=== PATIENT | male | born 1935 | race Caucasian/White ===

== ENCOUNTER → 2016-07-29 | Outpatient (CLI) | payer OTHER | LOC: LAB 14:32 | PROVIDERS: ATTEND Urology | DX: Z12.5 Encounter for screening for malignant neoplasm of prostate (principal) | CPT/HCPCS: 36415; G0103; 84153 ==

== ENCOUNTER → 2016-08-03 | Outpatient (CLI) | payer OTHER | LOC: LAB 13:27 | DX: J06.9 Acute upper respiratory infection, unspecified (principal); J40 Bronchitis, not specified as acute or chronic | CPT/HCPCS: 87880; 99213; G0463 ==

== ENCOUNTER → 2016-08-14 | Outpatient (CLI) | payer OTHER | LOC: MMPC 09:00 | PROVIDERS: ATTEND Physician Assistant Medical | DX: R05 Cough (principal); R09.89 Other specified symptoms and signs involving the circulatory and respiratory systems; J30.1 Allergic rhinitis due to pollen | CPT/HCPCS: 99213; G0463 ==

== ENCOUNTER → 2016-09-23 | Outpatient (CLI) | payer OTHER | LOC: MOB LAB 12:16 | PROVIDERS: ATTEND Family Medicine | DX: R35.0 Frequency of micturition (principal); R33.9 Retention of urine, unspecified; R41.0 Disorientation, unspecified | CPT/HCPCS: 87088 ==

== ENCOUNTER → 2016-09-23 | Outpatient (CLI) | payer OTHER ==
[2016-09-23 17:02] LABS: BASOPHILS # (AUTO) 0.09 10*3/UL; BASOPHILS % (AUTO) 1.8 % (0-1); EOSINOPHILS # (AUTO) 0.14 10*3/UL; EOSINOPHILS % (AUTO) 2.8 % (0-8); HEMATOCRIT 47.7 % (42.0-52.0); LYMPHOCYTES # (AUTO) 1.47 10*3/uL; MEAN CORPUSCULAR HEMOGLOBIN 31.3 PG (27-31); MEAN CORPUSCULAR HGB CONC 33.5 g/dL (33-37); MEAN CORPUSCULAR VOLUME 93.2 FL (80-90); MEAN PLATELET VOLUME 11.6 FL (7.4-12.2); MONOCYTES # (AUTO) 0.42 10*3/UL (0.3-0.8); MONOCYTES % (AUTO) 8.3 % (5-15); NEUTROPHILS # (AUTO) 2.93 10*3/UL; NEUTROPHILS % (AUTO) 57.6 % (50-80); RED BLOOD COUNT 5.12 10^6/uL (4.70-6.10)
[2016-09-23 17:03] LABS: PLATELET MORPHOLOGY COMMENT NORMAL MORPHOLOGY (NORM); RBC MORPHOLOGY COMMENT NORMAL MORPHOLOGY (NORM); WBC MORPHOLOGY COMMENT NORMAL MORPHOLOGY (NORM)
[2016-09-23 17:24] LABS: BUN/CREATININE RATIO 13.33 (6-20); CALCIUM 8.8 mg/dL (8.7-10.7); CHOL/HDL RATIO 2.76 RATIO (0-4.0); HEMOGLOBIN A1C 6.18 % (4.2-6.0); LDL CHOLESTEROL,CALCULATED 54.6 mg/dL; MAGNESIUM 2.2 mg/dL (1.6-2.4); SERUM ALBUMIN 3.8 g/dL (3.5-4.8)
[2016-09-23 17:30] LABS: VITAMIN D 25-HYDROXY 26.2 NG/ML (30-100)
== END ==
LOC: LAB 16:09
PROVIDERS: ATTEND Family Medicine
DX: I10 Essential (primary) hypertension (principal); G47.30 Sleep apnea, unspecified; R41.0 Disorientation, unspecified; R06.2 Wheezing; R60.0 Localized edema; K90.0 Celiac disease; N40.1 Benign prostatic hyperplasia with lower urinary tract symptoms; R33.9 Retention of urine, unspecified; R73.01 Impaired fasting glucose; Z12.5 Encounter for screening for malignant neoplasm of prostate
CPT/HCPCS: 36415; 80053; 80061; 82306; 82607; 83036; 83735; 83880; 84443; 85025; G0103

== ENCOUNTER → 2016-09-27 | Outpatient (CLI) | payer OTHER ==
--- NOTE | 2016-09-27 09:00 | DI ---
History: Confusion Comparison: None Findings: Midline structures are normal. Ventricles and sulci are prominent, consistent with age related atrophic changes. There are moderate small vessel ischemic changes. There are no space occupying lesions and there is no edema or midline shift. There is no acute CVA. There is no hemorrhage. Mastoid cells are well aerated. Impression: Atrophic and small vessel ischemic changes, unremarkable for the patient's age.
== END ==
LOC: MRI 08:14
PROVIDERS: ATTEND Family Medicine
DX: R41.0 Disorientation, unspecified (principal)
CPT/HCPCS: 70551

== ENCOUNTER 2017-11-02 22:10 | Inpatient (IN) ==
[2017-11-02] MEDS ORDERED: Sodium Chloride 0.9% 1,000 ML PRIMARY IV ONE (22:32)
--- NOTE | 2017-11-02 22:37 | PDOC ---
Altered Mental Status HPI - General Chief Complaint: Altered Mental Status Stated Complaint: CHANGED MEDS, NOW HAVING CONFUSION Date Seen by Provider: 11/02/17 Time Seen by Provider: 22:15 Source: POSITIVE: Patient, Spouse, Other (Sons) Exam Limitations: POSITIVE: Clinical condition Nurse's Notes Reviewed & Considered: Yes - History of Present Illness Initial Comments: This is a well-developed, well-nourished, 82-year-old male, with confusion. Over the last 2 weeks patient has had some mild confusion that became significantly worse 2 days ago. His family reports that he no longer recognizes the home he is lived in for 50 years, has attempted to drive an hour later a hotel for unknown reasons and he has not been driving for over 2 years now. His states that he has had no fever chills or sweats, no complaints of headache, no complaints of shortness of breath, chest pain, but has had some shortness of breath for which she has taken albuterol. He is complaining of some mild nausea but no vomiting, no diarrhea. He's had increased frequency of urination but no dysuria. Further review of systems is unavailable because the patient's confusion. Patient states that he is 32 years old and does not remember today's date. Body Location Affected: REPORTS: Head Timing: REPORTS: Gradual Duration: >1 week Severity: Severe Quality: DENIES: Aching, Burning, Cramping, Dullness, Fullness, "Pain", Sharpness, Stabbing, Throbbing, Tenderness, Itching, Pressure, Other Character of AMS: REPORTS: Disoriented, Confused FSBS BILL SORTER (Result in comment): No Patient Normals: REPORTS: Alert, Oriented x3 Associated Symptoms: REPORTS: Difficulty Breathing, Nausea Similar Symptoms Previously: No Recent Care Received: REPORTS: Denies Any Prior Injuries Related to Current Complaint?: No - Patient Home Medications Home Medications: Home Medications Polyethylene Glycol 3350 [Miralax] 17 gm PO DAILY 09/23/16 lisinopril 40 mg tablet 40 mg PO QD #90 tab 10/24/16 apixaban 2.5 mg tablet 2.5 mg PO BID #60 tab 09/23/17 metoprolol succinate ER 25 mg tablet,extended release 24 hr 25 mg PO QDAY #30 tab 09/23/17 furosemide 40 mg tablet 80 mg PO QAM #180 tab 09/26/17 spironolactone 25 mg tablet 25 mg PO QAM #30 tab 10/14/17 tamsulosin 0.4 mg capsule 0.8 mg PO QDAY cap 10/14/17 albuterol sulfate HFA 90 mcg/actuation aerosol inhaler 2 puff INH Q4H PRN #8 g 10/22/17 - Patient Allergies Allergies/Adverse Reactions: Allergies 3 Allergy/AdvReac Type Severity Reaction Status Date / Time cephalexin Allergy facial Verified 09/26/17 10:52 swelling Penicillins Allergy swelling Verified 09/26/17 10:52 Sulfa (Sulfonamide Allergy rash Verified 09/26/17 10:52 Antibiotics) trimethoprim Allergy rash Verified 09/26/17 10:52 Past Medical History - heen HEENT History: Denies History Cardiovascular History: Hypertension Respiratory History: Denies History Gastrointestinal History: Other (please comment) (INTERMITTENT ABDOMINAL PAIN FOR TWO WEEKS) Additional Gastrointestinal History: Hx of appendectomy Genitourinary History: Denies History Additional Genitourinary History: hx of stress urinary incontinence Endocrine History: Denies History Musculoskeletal History: Denies History Prosthesis or Implant: No Neurological History: Denies History Additional Neurological History: spouse states occasional memory loss--short term memory. Blood Disorders: Denies History Psychiatric History: Denies History History of Sexually Transmitted Diseases: No Cancer History: Denies History History of MDRO: No History of Other Communicable Diseases: No History of Exposure to Communicable Disease: No Alcohol Use: None In the Past 12 Months, Have Used or Abuse Any Substance: None Previous Surgical History: Yes (APPENDECTOMY) Anesthesia Reactions: No ROS - Limitations ROS Limitations: Clinical Condition (Patient is confused and further review of systems is unavailable.) Altered Mental Physical Exam - General Appearance General Appearance: POSITIVE: Cooperative, No Acute Distress, No Evidence of Trauma - HEENT HEENT: POSITIVE: Head Inspection Nml, Eyes Inspection Nml, Ears Inspection Nml, Nose Inspection Nml, Oral/Dental Inspect. Nml, Pharynx Inspect. Nml, PERRL, EOMI - Pupil Size Pupil Size: 5 mm: Bilateral - Neuro/Psych Neurological: POSITIVE: Confusion Cranial Nerves: POSITIVE: Normal As Tested, No Evidence of Acute CVA Cerebellar: POSITIVE: Normal As Tested Peripheral Exam: POSITIVE: No Motor Deficits, No Sensory Deficits, Reflexes Normal Reflexes: Patellar (R): 3+, Patellar (L): 3+, Radial (R): 4+, Radial (L): 4+ - Neck Neck: POSITIVE: Supple, Non Tender - Respiratory Respiratory: POSITIVE: No Respiratory Distress, Breath Sounds Normal - Cardiovascular CVS: POSITIVE: Regular Rate and Rhythm, Heart Sounds Normal Peripheral Pulses: Radial (R): 4+ - Abdomen Abdomen: Soft: (All Quadrants), Normal Bowel Sounds: (All Quadrants), Denies Tenderness: (All Quadrants), No Splenomegaly: (All Quadrants), No Hepatomegaly: (All Quadrants), No Guarding: (All Quadrants), No Rebound: (All Quadrants), No Palpable Pulse: (All Quadrants), No Palpabale Mass: (All Quadrants), No Distention: (All Quadrants), No Rigidity: (All Quadrants) - Skin Skin: POSITIVE: Normal for Race, No Rash, Warm, Dry - Extremities Extremity: Non-Tender: (All Extremities), Normal ROM: (All Extremities), Normal Inspection: (LUE), (RUE), Pelvis Stable: (All Extremities), Edema / Swelling: ( RLE), (LLE) Altered Mental Status - Results Reviewed By Me Xrays/CTs/US Reviewed: Yes Discussed with Radiologist: Yes Lab Results Reviewed by Me: Yes CBC and BMP: 11/02/17 22:48 11/02/17 22:48 Lab Results:: Laboratory Results 3 11/02/17 11/02/17 11/02/17 22:42 22:48 22:48 WBC 5.02 RBC 4.89 Hgb 15.7 Hct 46.5 MCV 95.1 H MCH 32.1 H MCHC 33.8 RDW Std Deviation 47.3 RDW Coeff of [place] 14.0 Plt Count 171 MPV 11.5 Immature Gran % (Auto) 0.6 Neut % (Auto) 59.5 Lymph % (Auto) 31.5 [place] % (Auto) 6.0 Eos % (Auto) 2.2 Baso % (Auto) 0.2 Immature Gran # (Auto) 0.03 Neut # (Auto) 2.99 Lymph # (Auto) 1.58 [place] # (Auto) 0.30 Eos # (Auto) 0.11 Baso # (Auto) 0.01 WBC Morphology Comment Normal morphology Plt Morphology Comment Normal morphology RBC Morph Comment Normal morphology PT 11.7 H INR 1.13 D-Dimer 0.22 VBG pH 7.44 H VBG pCO2 45 VBG HCO3 31 H VBG Base Excess 6 H Sodium Potassium Chloride Carbon Dioxide Anion Gap BUN Creatinine BUN/Creatinine Ratio Glucose Calculated Osmolality Calcium Magnesium Total Bilirubin AST ALT Alkaline Phosphatase Ammonia CK-MB (CK-2) Troponin I Handheld C-Reactive Protein NT-Pro-B Natriuret Pep Total Protein Albumin Globulin Albumin/Globulin Ratio TSH Free T4 Ur Collection Type Urine Color Urine Clarity Urine pH Ur Specific [place] U Specif Grav (Refrac) Urine Protein Urine Glucose (UA) Urine Ketones Urine Occult Blood Urine Nitrate Urine Bilirubin Urine Urobilinogen Ur Leukocyte Esterase Ur Culture Indicated? Urine Opiates Screen Ur Buprenorphine Ur Oxycodone Screen Urine Methadone Screen Ur Propoxyphene Screen Barbiturate Screen U Tricyclic Antidepress Phencyclidine Screen Amphetamines Screen U Methamphetamines Scrn Benzodiazepines Screen Cocaine Screen U Marijuana (THC) Screen Serum Alcohol 3 11/02/17 11/02/17 11/02/17 22:48 22:48 22:48 WBC RBC Hgb Hct MCV MCH MCHC RDW Std Deviation RDW Coeff of [place] Plt Count MPV Immature Gran % (Auto) Neut % (Auto) Lymph % (Auto) [place] % (Auto) Eos % (Auto) Baso % (Auto) Immature Gran # (Auto) Neut # (Auto) Lymph # (Auto) [place] # (Auto) Eos # (Auto) Baso # (Auto) WBC Morphology Comment Plt Morphology Comment RBC Morph Comment PT INR D-Dimer VBG pH VBG pCO2 VBG HCO3 VBG Base Excess Sodium 136 Potassium 4.2 Chloride 105 Carbon Dioxide 29 Anion Gap 2 L BUN 17 Creatinine 1.0 BUN/Creatinine Ratio 17.00 Glucose 129 H Calculated Osmolality 285.0 Calcium 8.9 Magnesium 2.0 Total Bilirubin 0.6 AST 37 ALT 48 Alkaline Phosphatase 48 Ammonia < 9 L CK-MB (CK-2) 1.86 Troponin I Handheld C-Reactive Protein < 0.5 NT-Pro-B Natriuret Pep 1480 H Total Protein 6.4 Albumin 3.7 Globulin 2.7 Albumin/Globulin Ratio 1.30 TSH 4.05 Free T4 1.17 Ur Collection Type Urine Color Urine Clarity Urine pH Ur Specific [place] U Specif Grav (Refrac) Urine Protein Urine Glucose (UA) Urine Ketones Urine Occult Blood Urine Nitrate Urine Bilirubin Urine Urobilinogen Ur Leukocyte Esterase Ur Culture Indicated? Urine Opiates Screen Ur Buprenorphine Ur Oxycodone Screen Urine Methadone Screen Ur Propoxyphene Screen Barbiturate Screen U Tricyclic Antidepress Phencyclidine Screen Amphetamines Screen U Methamphetamines Scrn Benzodiazepines Screen Cocaine Screen U Marijuana (THC) Screen Serum Alcohol < 10 3 11/02/17 11/03/17 22:48 01:10 WBC RBC Hgb Hct MCV MCH MCHC RDW Std Deviation RDW Coeff of [place] Plt Count MPV Immature Gran % (Auto) Neut % (Auto) Lymph % (Auto) [place] % (Auto) Eos % (Auto) Baso % (Auto) Immature Gran # (Auto) Neut # (Auto) Lymph # (Auto) [place] # (Auto) Eos # (Auto) Baso # (Auto) WBC Morphology Comment Plt Morphology Comment RBC Morph Comment PT INR D-Dimer VBG pH VBG pCO2 VBG HCO3 VBG Base Excess Sodium Potassium Chloride Carbon Dioxide Anion Gap BUN Creatinine BUN/Creatinine Ratio Glucose Calculated Osmolality Calcium Magnesium Total Bilirubin AST ALT Alkaline Phosphatase Ammonia CK-MB (CK-2) Troponin I Handheld 0.000 C-Reactive Protein NT-Pro-B Natriuret Pep Total Protein Albumin Globulin Albumin/Globulin Ratio TSH Free T4 Ur Collection Type Clean catch urine Urine Color Yellow Urine Clarity Clear Urine pH 5.5 Ur Specific [place] 1.010 U Specif Grav (Refrac) 1.010 Urine Protein Negative Urine Glucose (UA) Negative Urine Ketones Negative Urine Occult Blood Negative Urine Nitrate Negative Urine Bilirubin Negative Urine Urobilinogen 0.2 Ur Leukocyte Esterase Negative Ur Culture Indicated? Culture not set Urine Opiates Screen Negative Ur Buprenorphine Negative Ur Oxycodone Screen Negative Urine Methadone Screen Negative Ur Propoxyphene Screen Negative Barbiturate Screen Negative U Tricyclic Antidepress Negative Phencyclidine Screen Negative Amphetamines Screen Negative U Methamphetamines Scrn Negative Benzodiazepines Screen Negative Cocaine Screen Negative U Marijuana (THC) Screen Negative Serum Alcohol EKG Interpreted/Reviewed By Me:: Yes (atrial fibrillation with a rate of 83 beats a minute) EKG Interpretation:: POSITIVE: Abnormal EKG - Patient's Progress Pain Medication Addressed: POSITIVE: Not Applicable Status: POSITIVE: Improved MDM / ED Course: Patient was evaluated, an IV started, blood drawn and sent to the lab for studies, CT and ultrasound was obtained as well as EKG. Findings: EKG, as interpreted by me, shows an atrial fibrillation with rate of 83 beats a minute. CBC is within normal limits. CMP shows a glucose of 129 anion gap of 2. Troponin is 0.000. BNP is elevated 1480. Blood gases show a pH of 7.44 with CO2 of 45 and a bicarbonate of 31, base excess is 6. TSH and free T4 normal. Urinalysis is negative. PT/INR is normal. D-dimer is normal at 0.22. Ammonia is less than 9. CRP is less than 0.5. Urine drug screen is negative for all substances tested. Ultrasound shows no DVT present in the right lower extremity. CT scan of his head shows no acute intracranial abnormalities. Assessment: Confusion, altered mental status. Plan: Patient is being admitted by the hospitalist for further evaluation. Antibiotics Given: No - Consult Consult (If Yes, Name of Consulting MD & Time Called): Yes (Dr. Lamas) Consulting MD will see pt:: POSITIVE: [facility] [place] Admit Counseled: POSITIVE: Patient, Family, RE: Lab Results, RE: Radiology Results, RE : DX, RE: Need for F/U - CAP/CVA/Syncope CVA/Syncope: POSITIVE: EKG Patient Care Time - Estimated PCT Patient Care Time (In Minutes): 45 Vital Signs - Recent Vital Signs Vital Signs: Vital Signs (Last 8 hours) Temp Pulse Pulse Resp BP Pulse Ox 11/03/17 02:38 161/122 11/03/17 02:37 96.9 F 91 24 170/133 97 11/03/17 01:50 50 L - VS Reviewed Vital Signs Reviewed: Yes Discharge Clinical Impression: Altered mental status Qualifiers: Altered mental status type: disorientation Qualified Code(s): R41.0 - Disorientation, unspecified Discharge Disposition: Admit to Observation Condition: Stable
--- NOTE | 2017-11-02 22:43 | EKG ---
[address] [address] Measurements Intervals [place] Rate: 83 P: NM: 0 QRS: -81 QRSD: 153 T: 21 QT: 402 QTc: 442 Interpretive Statements ATRIAL FIBRILLATION RIGHT BUNDLE BRANCH BLOCK [120+ ms QRS DURATION, UPRIGHT V1, 40+ ms S IN I/aVL/V4/V5/V6] LEFT ANTERIOR FASCICULAR BLOCK [QRS AXIS <= -45, QR IN I, RS IN II] INTERPRETATION BASED ON A DEFAULT AGE OF 40 YEARS Compared to ECG 09/23/2017 14:16:50 Left anterior fascicular block now present Left-axis deviation no longer present Electronically Signed On 11-03-17 08:10:24 MDT by Kumar Cortés MD [email or web address]
[2017-11-02 22:52] LABS: VENOUS PH 7.44 (7.32-7.42)
[2017-11-02 23:01] LABS: BASOPHILS # (AUTO) 0.01 10*3/UL; BASOPHILS % (AUTO) 0.2 % (0-1); EOSINOPHILS # (AUTO) 0.11 10*3/UL; EOSINOPHILS % (AUTO) 2.2 % (0-8); Hematocrit [HCT] 46.5 % (42.0-52.0); Hemoglobin [HGB] 15.7 g/dL (14.0-18.0); LYMPHOCYTES # (AUTO) 1.58 10*3/uL; MEAN CORPUSCULAR HEMOGLOBIN 32.1 PG (27-31); MEAN CORPUSCULAR HGB CONC 33.8 g/dL (33-37); MEAN CORPUSCULAR VOLUME 95.1 FL (80-90); MEAN PLATELET VOLUME 11.5 FL (7.4-12.2); NEUTROPHILS # (AUTO) 2.99 10*3/UL; NEUTROPHILS % (AUTO) 59.5 % (50-80); PLATELET MORPHOLOGY COMMENT NORMAL MORPHOLOGY (NORM); RBC MORPHOLOGY COMMENT NORMAL MORPHOLOGY (NORM); RED BLOOD COUNT 4.89 10^6/uL (4.70-6.10); WBC MORPHOLOGY COMMENT NORMAL MORPHOLOGY (NORM)
[2017-11-02 23:10] LABS: BLOOD UREA NITROGEN 17 mg/dL (7-22); SERUM ALBUMIN 3.7 g/dL (3.5-4.8)
--- NOTE | 2017-11-02 23:41 | DI ---
EXAM: CT Head Without Intravenous Contrast CLINICAL HISTORY: Confusion TECHNIQUE: Axial computed tomography images of the head/brain without intravenous contrast. COMPARISON: MRI 2016 FINDINGS: Brain: Underlying cerebral atrophy is similar to previous exam. Periventricular and subcortical deep white matter hypodense changes are similar. No hemorrhage. Ventricles: Unremarkable. No ventriculomegaly. Bones/joints: Unremarkable. No acute fracture. Soft tissues: Unremarkable. Sinuses: Unremarkable as visualized. No acute sinusitis. Mastoid air cells: Unremarkable as visualized. No mastoid effusion. IMPRESSION: No acute intracranial process with underlying cerebral atrophy and deep white matter presumed microvascular changes, similar to previous MRI examination.
--- NOTE | 2017-11-03 00:05 | DI ---
EXAM: XR Chest, 2 Views CLINICAL HISTORY: SOB TECHNIQUE: Frontal and lateral views of the chest. COMPARISON: 09/03/2017 FINDINGS: Lungs: Perihilar and bibasilar subsegmental linear and streaky opacities. Pleural space: Unremarkable. No pneumothorax. Heart: The cardiac silhouette is within normal limits. Mediastinum: Unremarkable. Bones/joints: Stable degenerative changes of the thoracic spine. Upper abdomen: Stable flattening of the hemidiaphragms. IMPRESSION: Perihilar and bibasilar subsegmental linear and streaky opacities. Primary consideration is subsegmental atelectasis with diminished lung volumes. Atypical infectious process is also a consideration.
--- NOTE | 2017-11-03 01:10 | DI ---
EXAM: US Duplex Right Lower Extremity Veins CLINICAL HISTORY: sob/ LLE swelling TECHNIQUE: Real-time duplex ultrasound scan of the right lower extremity veins integrating B-mode two-dimensional vascular structure, Doppler spectral analysis, color flow Doppler imaging and compression. COMPARISON: No relevant prior studies available. FINDINGS: Deep veins: Unremarkable. No DVT in the visualized common femoral, femoral, proximal deep femoral or popliteal veins. The veins demonstrate normal color flow, are normally compressible, with normal phasic flow and/or augmentation response. Posterior tibial and anterior tibial veins appear to be patent. Superficial veins: Unremarkable. No thrombus in the visualized great saphenous vein. Soft tissues: Subcutaneous edema noted diffusely. No popliteal cyst. IMPRESSION: No evidence for deep venous thrombosis involving the right lower extremity. Incidental subcutaneous edema noted. No loculated fluid collection or other process identified.
[2017-11-03 01:13] LABS: BILIRUBIN,URINE NEGATIVE (NEG); CLARITY,URINE CLEAR (CLEAR); COLOR,URINE YELLOW (Y); GLUCOSE, URINE (UA) NEGATIVE (NEG); OCCULT BLOOD,URINE NEGATIVE (NEG); PH,URINE 5.5 (5.0-8.5); PROTEIN,URINE NEGATIVE (NEG); UROBILINOGEN,URINE 0.2 EU/dL (0.2)
[2017-11-03 01:17] LABS: URINE SAMPLE TYPE CLEAN CATCH URINE
[2017-11-03 01:24] LABS: AMPHETAMINE SCREEN NEGATIVE (NEG); CANNABINOID SCREEN,URINE NEGATIVE (NEG); COCAINE SCREEN NEGATIVE (NEG); METHADONE URINE SCREEN NEGATIVE (NEG); METHAMPHETAMINES SCREEN,URINE NEGATIVE (NEG); OPIATE SCREEN,URINE NEGATIVE (NEG)
[2017-11-03] MEDS ORDERED: HALOPERIDOL LACTATE 5 MG/1 ML AMPULE IVP ONE (01:26)
[2017-11-03] MEDS ORDERED: DOCUSATE 100 MG CAPSULE PO PRN (01:50)
[2017-11-03] MEDS ORDERED: Sodium Chloride 0.9% 1,000 ML PRIMARY IV SCH (01:50)
[2017-11-03] MEDS ORDERED: ONDANSETRON 4 MG/2 ML VIAL IVP PRN (01:50)
[2017-11-03] MEDS ORDERED: CALCIUM CARBONATE 500 MG (TUMS) CHEWABLE TABLET PO PRN (01:50)
[2017-11-03] MEDS ORDERED: ACETAMINOPHEN 325 MG TABLET PO PRN (01:50)
[2017-11-03] MEDS ORDERED: LIDOCAINE W/ SODIUM BICARB 0.5 ML SYR SUBD PRN (01:50)
--- NOTE | 2017-11-03 03:05 | PDOC ---
HPI - History of Present Illness Date of Service: 11/03/17 Time of Service: 02:59 Chief Complaint: Confusion History of Present Illness: This is a very pleasant 82-year-old male who has underlying dementia, recent onset of worsening edema thought to be pulmonary hypertension versus congestive heart failure, sleep apnea, BPH, hypertension, and asthma, amongst other problems, who has had 2 days of significantly worsening confusion with hallucinations. He's companied by his and his 2 sons here tonight. The patient has not had any fevers or chills, no cough reported. No complaints of chest pain or shortness of breath. In terms of his dementia, it's described as intermittent confusion about dates, but never about location. However over the last 2 days the patient does not know where he is living. [place] but cannot recognize it. He has had hallucinations and is been seeing people shotguns and knives trying to shoot or stab him. He's never had hallucinations like this before. About a year ago, the patient had workup for possible normal pressure hydrocephalus, but refused lumbar Procedures for high-volume LP to see if he would benefit from that. He does have a reported shuffling gait. His describes a tremor although I did not notice one during the examination. She thought it could be a urine infection as patient seemed to have worsening confusion 2 months ago with a urinary tract infection, but we were able to get a urinalysis early this a.m. and it appears negative for urinary tract infection. He is complaining of some increased swelling in his right lower extremity and wrist recently started on spironolactone although no echocardiogram has been done recently. Exacerbating factors are very difficult to obtain and the patient could not really provide much of a history. He was very confused about his whereabouts, he had no idea about the situation, and was really trying to concentrate on leaving the hospital in going home. He could not tell me where he lived, or that he lived within 90 miles of the hospital. He thought he was 200 miles away. Past Medical History Medical History: 1. Obesity. 2. GERD. 3. Hypertension. 4. Asthma. 5. Dementia without behavioral disturbances. 6. BPH. 7. Lower extremity edema. 8. Obstructive sleep apnea. 9. Atrial fibrillation, on Eliquis for stroke prevention Surgical History: 1. ORIF knee, right side. The patient had some sort of accident in the past and extensive surgery on the right lower extremity in the knee. 2. Status post appendectomy. 3.pelvis fracture. 4. wrist fracture Pertinent Family History: No history of Parkinson's disease in the family. Past Social History: Reportedly a history of smoking, but does not currently drink or smoke. Been for over the years. [place], [place]. Has 2 sons present here in the emergency room tonight. Tobacco Use: Former Smoker In the Past 12 Months, Have Used or Abuse Any of the Following Substance: None Alcohol Use: None Medication / Allergies Home Medications: Home Medications 3 Medication Instructions Recorded Confirmed Type Polyethylene Glycol 3350 [Miralax] 17 gm PO DAILY 09/23/16 10/14/17 History lisinopril 40 mg tablet 40 mg PO QD #90 tab 10/24/16 10/14/17 Rx apixaban 2.5 mg tablet 2.5 mg PO BID #60 tab 09/23/17 10/14/17 Rx metoprolol succinate ER 25 mg 25 mg PO QDAY #30 tab 09/23/17 10/14/17 Rx tablet,extended release 24 hr furosemide 40 mg tablet 80 mg PO QAM #180 tab 09/26/17 10/14/17 Rx spironolactone 25 mg tablet 25 mg PO QAM #30 tab 10/14/17 10/14/17 Rx tamsulosin 0.4 mg capsule 0.8 mg PO QDAY cap 10/14/17 10/14/17 History albuterol sulfate HFA 90 2 puff INH Q4H PRN #8 g 10/22/17 Rx mcg/actuation aerosol inhaler Allergies/Adverse Reactions: Allergies 3 Allergy/AdvReac Type Severity Reaction Status Date / Time cephalexin Allergy facial Verified 09/26/17 10:52 swelling Penicillins Allergy swelling Verified 09/26/17 10:52 Sulfa (Sulfonamide Allergy rash Verified 09/26/17 10:52 Antibiotics) trimethoprim Allergy rash Verified 09/26/17 10:52 Review of Systems - Review of Systems ROS Unobtainable: Due to Mental Status (Review systems was extremely difficult to obtain due to the patient's dementia. He is an extremely poor historian. He did deny any chest pain, shortness breath, nausea or vomiting. Family describes possible shuffling gait.) Exam - Vitals Vital Signs: Vital Signs Temperature 96.9 F Temperature Source Temporal Artery Scan Pulse Rate [Pulse Oximeter] 91 Pulse Rate [Apical] 50 Respiratory Rate 24 Blood Pressure [Right Arm] 161/122 Pulse Ox 97 Oxygen Flow Rate 2 Oxygen Delivery Method Nasal Cannula Height 5 ft 8 in Weight 255 lb 11.2 oz - General General Appearance: No Acute Distress, Cooperative - Head Head Exam: Normal Inspection, Normocephalic, Atraumatic - Eye Eye Exam: POSITIVE: No Scleral Icterus - ENT ENT Exam: POSITIVE: Mucous Membranes Moist - Neck Neck Exam: Normal Inspection, No Tenderness, No Lymphadenopathy, No Thyromegaly , JVP is not Raised - Respiratory Respiratory Exam: POSITIVE: Clear to Auscultation - Bilaterally, Breathing Non Labored, Normal to Percussion and Palpation - Cardiovascular Cardiovascular Exam: POSITIVE: RRR, No Murmur, No Clicks, No Gallops, No Rubs, No JVD - GI/Abdominal GI/Abdominal Exam: POSITIVE: Normal Bowel Sounds, Non Tender, Non Distended, Soft - Rectal Rectal Exam: POSITIVE: Deferred - External Exam: POSITIVE: Deferred Exam: POSITIVE: Deferred - Extremities Extremities Exam: POSITIVE: No Clubbing Present, No Cyanosis Present, +2 Edema Additional Extremities Exam Details: There is no erythema and the lower extremities to suggest cellulitis. - Back Back Exam: POSITIVE: No CVA Tenderness - Neurological Neurological Exam: POSITIVE: Alert, No Facial Droop, Speech Intact / Clear, Moves All Extremities Equally, Altered (Oriented to person, but not to place, time, or situation.) - Psychiatric Psychiatric Exam: POSITIVE: Anxious, Agitated - Integumentary Integumentary Exam: POSITIVE: Warm, Dry, Intact Results - Labs CBC and BMP: 11/02/17 22:48 11/02/17 22:48 Additional Lab Results: Laboratory Results 11/02/17 11/02/17 11/02/17 Range/Units 22:42 22:48 22:48 WBC 5.02 (4.8-10.8) 10^3/uL RBC 4.89 (4.70-6.10) 10^6/uL Hgb 15.7 (14.0-18.0) g/dL Hct 46.5 (42.0-52.0) % MCV 95.1 H (80-90) FL MCH 32.1 H (27-31) PG MCHC 33.8 (33-37) g/dL RDW Std Deviation 47.3 (39-50) fL RDW Coeff of Codi 14.0 (11.5-14.5) % Plt Count 171 (140-350) 10*3/uL MPV 11.5 (7.4-12.2) FL Immature Gran % (Auto) 0.6 (0-5) % Neut % (Auto) 59.5 (50-80) % Lymph % (Auto) 31.5 (10-50) % [facility] % (Auto) 6.0 (5-15) % Eos % (Auto) 2.2 (0-8) % Baso % (Auto) 0.2 (0-1) % Immature Gran # (Auto) 0.03 10*3/UL Neut # (Auto) 2.99 10*3/UL Lymph # (Auto) 1.58 10*3/uL [facility] # (Auto) 0.30 (0.3-0.8) 10*3/UL Eos # (Auto) 0.11 10*3/UL Baso # (Auto) 0.01 10*3/UL WBC Morphology Comment Normal morphology (NORM) Plt Morphology Comment Normal morphology (NORM) RBC Morph Comment Normal morphology (NORM) PT 11.7 H (9.7-11.4) secs INR 1.13 (0.00-5.90) N/A D-Dimer 0.22 (0.00-0.59) mg/L VBG pH 7.44 H (7.32-7.42) VBG pCO2 45 (45-55) mmHg VBG HCO3 31 H (22-26) mmol/L VBG Base Excess 6 H (-2-2) MMOL/L Sodium (135-145) meq/L Potassium (3.8-5.2) meq/L Chloride (98-112) meq/L Carbon Dioxide (23-33) meq/L Anion Gap (5-20) BUN (7-22) mg/dL Creatinine (0.70-1.50) mg/dL BUN/Creatinine Ratio (6-20) Glucose (78-110) mg/dL Calculated Osmolality (267-292) mOsm/kg Calcium (8.7-10.7) mg/dL Magnesium (1.6-2.4) mg/dL Total Bilirubin (0.3-1.2) mg/dL AST (21-57) IU/L ALT (21-72) IU/L Alkaline Phosphatase (38-126) IU/L Ammonia (9.0-33.0) UMOL/L CK-MB (CK-2) (0.00-5.00) NG/ML Troponin I Handheld (< 0.040) ng/mL C-Reactive Protein (0.0-0.9) mg/dL NT-Pro-B Natriuret Pep (0-450) PG/ML Total Protein (6.1-8.0) g/dL Albumin (3.5-4.8) g/dL Globulin (2.50-4.10) g/dL Albumin/Globulin Ratio (1.3-2.0) mg/g TSH (0.2700-4.2000) uIU/mL Free T4 (0.93-1.71) ng/dL Ur Collection Type Urine Color (Y) Urine Clarity (CLEAR) Urine pH (5.0-8.5) Ur Specific Hooper (1.005-1.030) U Specif Grav (Refrac) Urine Protein (NEG) mg/dl Urine Glucose (UA) (NEG) mg/dL Urine Ketones (NEG) Urine Occult Blood (NEG) Urine Nitrate (NEG) Urine Bilirubin (NEG) Urine Urobilinogen (0.2) EU/dL Ur Leukocyte Esterase (NEG) Ur Culture Indicated? Urine Opiates Screen (NEG) Ur Buprenorphine (NEG) Ur Oxycodone Screen (NEG) Urine Methadone Screen (NEG) Ur Propoxyphene Screen (NEG) Barbiturate Screen (NEG) U Tricyclic Antidepress (NEG) Phencyclidine Screen (NEG) Amphetamines Screen (NEG) U Methamphetamines Scrn (NEG) Benzodiazepines Screen (NEG) Cocaine Screen (NEG) U Marijuana (THC) Screen (NEG) Serum Alcohol (0-10) mg/dL 11/02/17 11/02/17 11/02/17 Range/Units 22:48 22:48 22:48 WBC (4.8-10.8) 10^3/uL RBC (4.70-6.10) 10^6/uL Hgb (14.0-18.0) g/dL Hct (42.0-52.0) % MCV (80-90) FL MCH (27-31) PG MCHC (33-37) g/dL RDW Std Deviation (39-50) fL RDW Coeff of Codi (11.5-14.5) % Plt Count (140-350) 10*3/uL MPV (7.4-12.2) FL Immature Gran % (Auto) (0-5) % Neut % (Auto) (50-80) % Lymph % (Auto) (10-50) % [facility] % (Auto) (5-15) % Eos % (Auto) (0-8) % Baso % (Auto) (0-1) % Immature Gran # (Auto) 10*3/UL Neut # (Auto) 10*3/UL Lymph # (Auto) 10*3/uL [facility] # (Auto) (0.3-0.8) 10*3/UL Eos # (Auto) 10*3/UL Baso # (Auto) 10*3/UL WBC Morphology Comment (NORM) Plt Morphology Comment (NORM) RBC Morph Comment (NORM) PT (9.7-11.4) secs INR (0.00-5.90) N/A D-Dimer (0.00-0.59) mg/L VBG pH (7.32-7.42) VBG pCO2 (45-55) mmHg VBG HCO3 (22-26) mmol/L VBG Base Excess (-2-2) MMOL/L Sodium 136 (135-145) meq/L Potassium 4.2 (3.8-5.2) meq/L Chloride 105 (98-112) meq/L Carbon Dioxide 29 (23-33) meq/L Anion Gap 2 L (5-20) BUN 17 (7-22) mg/dL Creatinine 1.0 (0.70-1.50) mg/dL BUN/Creatinine Ratio 17.00 (6-20) Glucose 129 H (78-110) mg/dL Calculated Osmolality 285.0 (267-292) mOsm/kg Calcium 8.9 (8.7-10.7) mg/dL Magnesium 2.0 (1.6-2.4) mg/dL Total Bilirubin 0.6 (0.3-1.2) mg/dL AST 37 (21-57) IU/L ALT 48 (21-72) IU/L Alkaline Phosphatase 48 (38-126) IU/L Ammonia < 9 L (9.0-33.0) UMOL/L CK-MB (CK-2) 1.86 (0.00-5.00) NG/ML Troponin I Handheld (< 0.040) ng/mL C-Reactive Protein < 0.5 (0.0-0.9) mg/dL NT-Pro-B Natriuret Pep 1480 H (0-450) PG/ML Total Protein 6.4 (6.1-8.0) g/dL Albumin 3.7 (3.5-4.8) g/dL Globulin 2.7 (2.50-4.10) g/dL Albumin/Globulin Ratio 1.30 (1.3-2.0) mg/g TSH 4.05 (0.2700-4.2000) uIU/mL Free T4 1.17 (0.93-1.71) ng/dL Ur Collection Type Urine Color (Y) Urine Clarity (CLEAR) Urine pH (5.0-8.5) Ur Specific Hooper (1.005-1.030) U Specif Grav (Refrac) Urine Protein (NEG) mg/dl Urine Glucose (UA) (NEG) mg/dL Urine Ketones (NEG) Urine Occult Blood (NEG) Urine Nitrate (NEG) Urine Bilirubin (NEG) Urine Urobilinogen (0.2) EU/dL Ur Leukocyte Esterase (NEG) Ur Culture Indicated? Urine Opiates Screen (NEG) Ur Buprenorphine (NEG) Ur Oxycodone Screen (NEG) Urine Methadone Screen (NEG) Ur Propoxyphene Screen (NEG) Barbiturate Screen (NEG) U Tricyclic Antidepress (NEG) Phencyclidine Screen (NEG) Amphetamines Screen (NEG) U Methamphetamines Scrn (NEG) Benzodiazepines Screen (NEG) Cocaine Screen (NEG) U Marijuana (THC) Screen (NEG) Serum Alcohol < 10 (0-10) mg/dL 11/02/17 11/03/17 Range/Units 22:48 01:10 WBC (4.8-10.8) 10^3/uL RBC (4.70-6.10) 10^6/uL Hgb (14.0-18.0) g/dL Hct (42.0-52.0) % MCV (80-90) FL MCH (27-31) PG MCHC (33-37) g/dL RDW Std Deviation (39-50) fL RDW Coeff of Codi (11.5-14.5) % Plt Count (140-350) 10*3/uL MPV (7.4-12.2) FL Immature Gran % (Auto) (0-5) % Neut % (Auto) (50-80) % Lymph % (Auto) (10-50) % [facility] % (Auto) (5-15) % Eos % (Auto) (0-8) % Baso % (Auto) (0-1) % Immature Gran # (Auto) 10*3/UL Neut # (Auto) 10*3/UL Lymph # (Auto) 10*3/uL [facility] # (Auto) (0.3-0.8) 10*3/UL Eos # (Auto) 10*3/UL Baso # (Auto) 10*3/UL WBC Morphology Comment (NORM) Plt Morphology Comment (NORM) RBC Morph Comment (NORM) PT (9.7-11.4) secs INR (0.00-5.90) N/A D-Dimer (0.00-0.59) mg/L VBG pH (7.32-7.42) VBG pCO2 (45-55) mmHg VBG HCO3 (22-26) mmol/L VBG Base Excess (-2-2) MMOL/L Sodium (135-145) meq/L Potassium (3.8-5.2) meq/L Chloride (98-112) meq/L Carbon Dioxide (23-33) meq/L Anion Gap (5-20) BUN (7-22) mg/dL Creatinine (0.70-1.50) mg/dL BUN/Creatinine Ratio (6-20) Glucose (78-110) mg/dL Calculated Osmolality (267-292) mOsm/kg Calcium (8.7-10.7) mg/dL Magnesium (1.6-2.4) mg/dL Total Bilirubin (0.3-1.2) mg/dL AST (21-57) IU/L ALT (21-72) IU/L Alkaline Phosphatase (38-126) IU/L Ammonia (9.0-33.0) UMOL/L CK-MB (CK-2) (0.00-5.00) NG/ML Troponin I Handheld 0.000 (< 0.040) ng/mL C-Reactive Protein (0.0-0.9) mg/dL NT-Pro-B Natriuret Pep (0-450) PG/ML Total Protein (6.1-8.0) g/dL Albumin (3.5-4.8) g/dL Globulin (2.50-4.10) g/dL Albumin/Globulin Ratio (1.3-2.0) mg/g TSH (0.2700-4.2000) uIU/mL Free T4 (0.93-1.71) ng/dL Ur Collection Type Clean catch urine Urine Color Yellow (Y) Urine Clarity Clear (CLEAR) Urine pH 5.5 (5.0-8.5) Ur Specific Hooper 1.010 (1.005-1.030) U Specif Grav (Refrac) 1.010 Urine Protein Negative (NEG) mg/dl Urine Glucose (UA) Negative (NEG) mg/dL Urine Ketones Negative (NEG) Urine Occult Blood Negative (NEG) Urine Nitrate Negative (NEG) Urine Bilirubin Negative (NEG) Urine Urobilinogen 0.2 (0.2) EU/dL Ur Leukocyte Esterase Negative (NEG) Ur Culture Indicated? Culture not set Urine Opiates Screen Negative (NEG) Ur Buprenorphine Negative (NEG) Ur Oxycodone Screen Negative (NEG) Urine Methadone Screen Negative (NEG) Ur Propoxyphene Screen Negative (NEG) Barbiturate Screen Negative (NEG) U Tricyclic Antidepress Negative (NEG) Phencyclidine Screen Negative (NEG) Amphetamines Screen Negative (NEG) U Methamphetamines Scrn Negative (NEG) Benzodiazepines Screen Negative (NEG) Cocaine Screen Negative (NEG) U Marijuana (THC) Screen Negative (NEG) Serum Alcohol (0-10) mg/dL - EKG Data -: EKG Interpreted by Me Rate: Normal - EKG Data EKG Interpretation: Other (Atrial fibrillation with normal ventricular response was somewhat widened QRS suggestive of possible right bundle branch block.) - Imaging Status: Image Reviewed by Me (Chest x-ray, on my view may have a right-sided pneumonia? CT scan of the head does not show any bleeding in the brain. The ventricles looked normal sized to me.) Assessment and Plan - Patient Problems (1) Altered mental status Current Visit: Yes Status: Acute Code(s): R41.82 - Altered mental status, unspecified Qualifiers: Altered mental status type: disorientation Qualified Code(s): R41.0 - Disorientation, unspecified (2) Hallucinations Current Visit: Yes Status: Acute Code(s): R44.3 - Hallucinations, unspecified (3) Afib Current Visit: Yes Status: Chronic Code(s): I48.91 - Unspecified atrial fibrillation Qualifiers: Atrial fibrillation type: chronic Qualified Code(s): I48.2 - Chronic atrial fibrillation (4) GERD (gastroesophageal reflux disease) Current Visit: Yes Status: Chronic Onset Date: 10/07/11 Code(s): K21.9 - Gastro-esophageal reflux disease without esophagitis Qualifiers: Esophagitis presence: esophagitis presence not specified Qualified Code(s) : K21.9 - Gastro-esophageal reflux disease without esophagitis (5) Dementia, unspecified, with behavioral disturbance Current Visit: Yes Status: Acute Onset Date: 10/04/16 Code(s): F03.91 - Unspecified dementia with behavioral disturbance Qualifiers: Dementia type: Alzheimer's disease Alzheimer's disease onset: late-onset Qualified Code(s): G30.1 - Alzheimer's disease with late onset; F02.81 - Dementia in other diseases classified elsewhere with behavioral disturbance (6) Benign prostatic hyperplasia Current Visit: Yes Status: Chronic Onset Date: 10/07/11 Code(s): N40.0 - Benign prostatic hyperplasia without lower urinary tract symptoms Qualifiers: Lower urinary tract symptom presence: symptoms present Lower urinary tract symptom detail: unspecified Qualified Code(s): N40.1 - Benign prostatic hyperplasia with lower urinary tract symptoms (7) Benign hypertension Current Visit: Yes Status: Acute Onset Date: 10/07/11 Code(s): I10 - Essential (primary) hypertension (8) Asthma Current Visit: Yes Status: Acute Onset Date: 10/07/11 Code(s): J45.909 - Unspecified asthma, uncomplicated Qualifiers: Asthma severity: unspecified severity Asthma complication type: uncomplicated - Assessment / Plan Additional Assessment/Plan Details: It will definitely take more than 2 minutes to work through this altered mental status with hallucinations. I will admit him as an inpatient. We did discuss CODE STATUS, with discussion, the family's decided that they would like the patient to be DO NOT RESUSCITATE. In terms of his workup for confusion, altered mental status, and hallucinations , and like to go ahead and do a CTA to rule out pulmonary emboli and in addition try and determine whether or not there is a pneumonia. Urinalysis is reassuring in that it is looking like it is negative for any urinary tract infection. A brain MRI scan, although one was done in September 2016, may be helpful. Certainly Parkinson's or Parkinsonian-like syndromes might fit the history although I do doubt that there is normal pressure hydrocephalus. The ventricles did look normal sized on head CT scan. Doubt mass effect as there are no focal findings. We'll try to keep the patient on home medications but stop spironolactone and his most recent medication started. Patient may warrant an echocardiogram. I don't know for dealing with pulmonary hypertension or congestive heart failure. Reassuring that the initial troponin is negative. Check labs in a.m. Haldol for hallucinations. It may be that the patient will need an atypical in a psychotic and I did discuss risks and benefits with the family including the risks of early from stroke or heart attack at this age range and the black box label warning from the FDA, but benefits might include prevention of worsening hallucinations. This could all just be worsening dementia as well, but he think that there is a lot in the differential to try and work out to make sure there is no evidence of infection. Complex case. Prognosis is not known.
[2017-11-03] MEDS ORDERED: HALOPERIDOL LACTATE 5 MG/1 ML AMPULE IVP PRN (03:15)
[2017-11-03] MEDS ORDERED: LABETALOL 20 MG/4 ML (5 MG/1 ML) SYRINGE IVP PRN (03:25)
[2017-11-03] MEDS: ALBUTEROL SULFATE 2.5 MG/3 ML NEB PRN ×2 (03:31→06:39)
[2017-11-03 04:13] LABS: CARBON MONOXIDE 4.9 % (0-2)
[2017-11-03] MEDS ORDERED: LIDOCAINE HCL 2 % 10 ML JELLY URO-JECT TOPICAL PRN (04:59)
--- NOTE | 2017-11-03 05:18 | DI ---
EXAM: CT Angiography Chest Without And With Intravenous Contrast CLINICAL HISTORY: altered, hypoxia, elevated D--dimer, question PE TECHNIQUE: Axial computed tomographic angiography images of the chest without and with intravenous contrast using pulmonary embolism protocol. MIP reconstructed images were created and reviewed. COMPARISON: No relevant prior studies available. FINDINGS: Pulmonary arteries: Unremarkable. No pulmonary embolism. Aorta: The ascending aorta measures 4.3 cm. No dissection or significant atherosclerotic disease.. Lungs: There is peribronchial thickening noted, particularly in the dependent lung bases. There is some respiratory artifact at the lung bases are slightly limits detailed evaluation of the distal subsegmental branches. No mass. Pleural space: Unremarkable. No significant effusion. No pneumothorax. Heart: Unremarkable. No cardiomegaly. No significant pericardial effusion. There is some reflux of contrast into the intrahepatic IVC. Mediastinum: There is a soft tissue density structure involving the superior mediastinum adjacent to the right trachea measures 3.7 x 3.2 x 5. 4 cm in length and appears to abut or be contiguous with the inferior margin of the left thyroid gland. Bones/joints: Degenerative changes noted involving the thoracic spine with bridging osteophytes and mild accentuation of the normal thoracic kyphosis. Soft tissues: Unremarkable. Lymph nodes: Nonspecific paratracheal lymph nodes noted. Gallbladder and bile ducts: Single gallstone noted in the gallbladder. IMPRESSION: 1. No evidence for pulmonary embolism. 2. There is peribronchial thickening noted, particularly in the dependent lung bases. This may represent pulmonary vascular congestion or inflammatory or reactive airways disease. Subsegmental, predominantly linear presumed atelectasis involving the inferior lung bases. No segmental consolidation, pleural effusion or pneumothorax. 3. There is some reflux of contrast into the intrahepatic IVC. This is a nonspecific finding but may represent right heart dysfunction. Please correlate clinically. 4. There is a soft tissue density structure involving the superior mediastinum adjacent to the right trachea measures 3.7 x 3.2 x 5.4 cm in length and appears to abut or be contiguous with the inferior margin of the left thyroid gland. Differential consideration includes mediastinal lymphadenopathy versus thyroid lesion. No comparison available to determine stability of this finding. Recommend nonemergent dedicated evaluation of the mediastinum in the in phase of contrast enhancement, when clinically appropriate. No other evidence for mediastinal or hilar adenopathy with nonspecific paratracheal lymph nodes noted.
[2017-11-03 06:26] VITALS: BP 159/105; TEMP 97.7
[2017-11-03 06:40] VITALS: RESP 18; O2SAT 91
[2017-11-03] MEDS ORDERED: FUROSEMIDE 10 MG/1 ML - 4 ML IVP SCH (07:00)
[2017-11-03] MEDS ORDERED: POLYETHYLENE GLYCOL 3350 17 GM POWDER PO SCH (09:00)
[2017-11-03] MEDS ORDERED: FUROSEMIDE 40 MG TABLET PO SCH (09:00)
[2017-11-03] MEDS ORDERED: LISINOPRIL 20 MG TABLET PO SCH (09:00)
[2017-11-03] MEDS ORDERED: METOPROLOL SUCCINATE 25 MG SR 24H TABLET PO SCH (09:00)
[2017-11-03] MEDS ORDERED: POTASSIUM CHLORIDE 20 MEQ TAB PO SCH (09:00)
[2017-11-03] MEDS ORDERED: TAMSULOSIN 0.4 MG CAPSULE PO SCH (09:00)
[2017-11-03] MEDS ORDERED: Apixaban Tab 2.5 MG TABLET PO SCH (09:00)
[2017-11-03] MEDS ORDERED: HALOPERIDOL LACTATE 5 MG/1 ML AMPULE IM ONE (11:06)
[2017-11-03] MEDS ORDERED: LORazepam 2 MG/1 ML VIAL IM ONE ×2 (11:52→12:06)
[2017-11-03] MEDS ORDERED: LORazepam 2 MG/1 ML VIAL ONE (11:57)
[2017-11-03 12:38] LABS: CARBON MONOXIDE 5.1 % (0-2)
[2017-11-03 12:49] LABS: BLOOD UREA NITROGEN 12 mg/dL (7-22); BUN/CREATININE RATIO 13.33 (6-20); SERUM ALBUMIN 4.3 g/dL (3.5-4.8)
--- NOTE | 2017-11-03 12:49 | DCSUMMARY ---
Hospitalization Summary Hospital Course: Final Discharge Diagnosis: Current Visit Problems Problem Status Onset Code Altered mental status Acute R41.82 Hallucinations Acute R44.3 Afib Chronic I48.91 GERD (gastroesophageal reflux disease) Chronic 10/07/11 K21.9 Dementia, unspecified, with behavioral disturbance Acute 10/04/16 F03.91 Benign prostatic hyperplasia Chronic 10/07/11 N40.0 Benign hypertension Acute 10/07/11 I10 Asthma Acute 10/07/11 J45.909 Diagnostic Data, Laboratory Data, and Procedures of Signifigance: Laboratory Results 11/02/17 11/02/17 11/02/17 Range/Units 22:42 22:48 22:48 WBC 5.02 (4.8-10.8) 10^3/uL RBC 4.89 (4.70-6.10) 10^6/uL Hgb 15.7 (14.0-18.0) g/dL Hgb #2 (13.00-18.20) G/DL Hct 46.5 (42.0-52.0) % MCV 95.1 H (80-90) FL MCH 32.1 H (27-31) PG MCHC 33.8 (33-37) g/dL RDW Std Deviation 47.3 (39-50) fL RDW Coeff of [place] 14.0 (11.5-14.5) % Plt Count 171 (140-350) 10*3/uL MPV 11.5 (7.4-12.2) FL Immature Gran % (Auto) 0.6 (0-5) % Neut % (Auto) 59.5 (50-80) % Lymph % (Auto) 31.5 (10-50) % Foster % (Auto) 6.0 (5-15) % Eos % (Auto) 2.2 (0-8) % Baso % (Auto) 0.2 (0-1) % Immature Gran # (Auto) 0.03 10*3/UL Neut # (Auto) 2.99 10*3/UL Lymph # (Auto) 1.58 10*3/uL Foster # (Auto) 0.30 (0.3-0.8) 10*3/UL Eos # (Auto) 0.11 10*3/UL Baso # (Auto) 0.01 10*3/UL WBC Morphology Comment Normal morphology (NORM) Plt Morphology Comment Normal morphology (NORM) RBC Morph Comment Normal morphology (NORM) ESR (0-15) MM/HR PT 11.7 H (9.7-11.4) secs INR 1.13 (0.00-5.90) N/A D-Dimer 0.22 (0.00-0.59) mg/L VBG pH 7.44 H (7.32-7.42) VBG pCO2 45 (45-55) mmHg VBG HCO3 31 H (22-26) mmol/L VBG Base Excess 6 H (-2-2) MMOL/L Carbon Monoxide, % Sat (0-2) % Sodium (135-145) meq/L Potassium (3.8-5.2) meq/L Chloride (98-112) meq/L Carbon Dioxide (23-33) meq/L Anion Gap (5-20) BUN (7-22) mg/dL Creatinine (0.70-1.50) mg/dL BUN/Creatinine Ratio (6-20) Glucose (78-110) mg/dL Mean Blood Glucose mg/dL Hemoglobin A1c (4.2-6.0) % Calculated Osmolality (267-292) mOsm/kg Calcium (8.7-10.7) mg/dL Magnesium (1.6-2.4) mg/dL Total Bilirubin (0.3-1.2) mg/dL AST (21-57) IU/L ALT (21-72) IU/L Alkaline Phosphatase (38-126) IU/L Ammonia (9.0-33.0) UMOL/L CK-MB (CK-2) (0.00-5.00) NG/ML Troponin I Handheld (< 0.040) ng/mL C-Reactive Protein (0.0-0.9) mg/dL NT-Pro-B Natriuret Pep (0-450) PG/ML Total Protein (6.1-8.0) g/dL Albumin (3.5-4.8) g/dL Globulin (2.50-4.10) g/dL Albumin/Globulin Ratio (1.3-2.0) mg/g Vitamin B12 (239-931) pg/mL Serum Folate (2.76-20.0) NG/ML TSH (0.2700-4.2000) uIU/mL Free T4 (0.93-1.71) ng/dL Ur Collection Type Urine Color (Y) Urine Clarity (CLEAR) Urine pH (5.0-8.5) Ur Specific [place] (1.005-1.030) U Specif Grav (Refrac) Urine Protein (NEG) mg/dl Urine Glucose (UA) (NEG) mg/dL Urine Ketones (NEG) Urine Occult Blood (NEG) Urine Nitrate (NEG) Urine Bilirubin (NEG) Urine Urobilinogen (0.2) EU/dL Ur Leukocyte Esterase (NEG) Ur Culture Indicated? Urine Opiates Screen (NEG) Ur Buprenorphine (NEG) Ur Oxycodone Screen (NEG) Urine Methadone Screen (NEG) Ur Propoxyphene Screen (NEG) Barbiturate Screen (NEG) U Tricyclic Antidepress (NEG) Phencyclidine Screen (NEG) Amphetamines Screen (NEG) U Methamphetamines Scrn (NEG) Benzodiazepines Screen (NEG) Cocaine Screen (NEG) U Marijuana (THC) Screen (NEG) Serum Alcohol (0-10) mg/dL 11/02/17 11/02/17 11/02/17 Range/Units 22:48 22:48 22:48 WBC (4.8-10.8) 10^3/uL RBC (4.70-6.10) 10^6/uL Hgb (14.0-18.0) g/dL Hgb #2 (13.00-18.20) G/DL Hct (42.0-52.0) % MCV (80-90) FL MCH (27-31) PG MCHC (33-37) g/dL RDW Std Deviation (39-50) fL RDW Coeff of [place] (11.5-14.5) % Plt Count (140-350) 10*3/uL MPV (7.4-12.2) FL Immature Gran % (Auto) (0-5) % Neut % (Auto) (50-80) % Lymph % (Auto) (10-50) % Foster % (Auto) (5-15) % Eos % (Auto) (0-8) % Baso % (Auto) (0-1) % Immature Gran # (Auto) 10*3/UL Neut # (Auto) 10*3/UL Lymph # (Auto) 10*3/uL Foster # (Auto) (0.3-0.8) 10*3/UL Eos # (Auto) 10*3/UL Baso # (Auto) 10*3/UL WBC Morphology Comment (NORM) Plt Morphology Comment (NORM) RBC Morph Comment (NORM) ESR (0-15) MM/HR PT (9.7-11.4) secs INR (0.00-5.90) N/A D-Dimer (0.00-0.59) mg/L VBG pH (7.32-7.42) VBG pCO2 (45-55) mmHg VBG HCO3 (22-26) mmol/L VBG Base Excess (-2-2) MMOL/L Carbon Monoxide, % Sat (0-2) % Sodium 136 (135-145) meq/L Potassium 4.2 (3.8-5.2) meq/L Chloride 105 (98-112) meq/L Carbon Dioxide 29 (23-33) meq/L Anion Gap 2 L (5-20) BUN 17 (7-22) mg/dL Creatinine 1.0 (0.70-1.50) mg/dL BUN/Creatinine Ratio 17.00 (6-20) Glucose 129 H (78-110) mg/dL Mean Blood Glucose mg/dL Hemoglobin A1c (4.2-6.0) % Calculated Osmolality 285.0 (267-292) mOsm/kg Calcium 8.9 (8.7-10.7) mg/dL Magnesium 2.0 (1.6-2.4) mg/dL Total Bilirubin 0.6 (0.3-1.2) mg/dL AST 37 (21-57) IU/L ALT 48 (21-72) IU/L Alkaline Phosphatase 48 (38-126) IU/L Ammonia < 9 L (9.0-33.0) UMOL/L CK-MB (CK-2) 1.86 (0.00-5.00) NG/ML Troponin I Handheld (< 0.040) ng/mL C-Reactive Protein < 0.5 (0.0-0.9) mg/dL NT-Pro-B Natriuret Pep 1480 H (0-450) PG/ML Total Protein 6.4 (6.1-8.0) g/dL Albumin 3.7 (3.5-4.8) g/dL Globulin 2.7 (2.50-4.10) g/dL Albumin/Globulin Ratio 1.30 (1.3-2.0) mg/g Vitamin B12 (239-931) pg/mL Serum Folate (2.76-20.0) NG/ML TSH 4.05 (0.2700-4.2000) uIU/mL Free T4 1.17 (0.93-1.71) ng/dL Ur Collection Type Urine Color (Y) Urine Clarity (CLEAR) Urine pH (5.0-8.5) Ur Specific [place] (1.005-1.030) U Specif Grav (Refrac) Urine Protein (NEG) mg/dl Urine Glucose (UA) (NEG) mg/dL Urine Ketones (NEG) Urine Occult Blood (NEG) Urine Nitrate (NEG) Urine Bilirubin (NEG) Urine Urobilinogen (0.2) EU/dL Ur Leukocyte Esterase (NEG) Ur Culture Indicated? Urine Opiates Screen (NEG) Ur Buprenorphine (NEG) Ur Oxycodone Screen (NEG) Urine Methadone Screen (NEG) Ur Propoxyphene Screen (NEG) Barbiturate Screen (NEG) U Tricyclic Antidepress (NEG) Phencyclidine Screen (NEG) Amphetamines Screen (NEG) U Methamphetamines Scrn (NEG) Benzodiazepines Screen (NEG) Cocaine Screen (NEG) U Marijuana (THC) Screen (NEG) Serum Alcohol < 10 (0-10) mg/dL 11/02/17 11/03/17 11/03/17 Range/Units 22:48 01:10 04:05 WBC (4.8-10.8) 10^3/uL RBC (4.70-6.10) 10^6/uL Hgb (14.0-18.0) g/dL Hgb #2 (13.00-18.20) G/DL Hct (42.0-52.0) % MCV (80-90) FL MCH (27-31) PG MCHC (33-37) g/dL RDW Std Deviation (39-50) fL RDW Coeff of [place] (11.5-14.5) % Plt Count (140-350) 10*3/uL MPV (7.4-12.2) FL Immature Gran % (Auto) (0-5) % Neut % (Auto) (50-80) % Lymph % (Auto) (10-50) % Foster % (Auto) (5-15) % Eos % (Auto) (0-8) % Baso % (Auto) (0-1) % Immature Gran # (Auto) 10*3/UL Neut # (Auto) 10*3/UL Lymph # (Auto) 10*3/uL Foster # (Auto) (0.3-0.8) 10*3/UL Eos # (Auto) 10*3/UL Baso # (Auto) 10*3/UL WBC Morphology Comment (NORM) Plt Morphology Comment (NORM) RBC Morph Comment (NORM) ESR (0-15) MM/HR PT (9.7-11.4) secs INR (0.00-5.90) N/A D-Dimer (0.00-0.59) mg/L VBG pH (7.32-7.42) VBG pCO2 (45-55) mmHg VBG HCO3 (22-26) mmol/L VBG Base Excess (-2-2) MMOL/L Carbon Monoxide, % Sat (0-2) % Sodium (135-145) meq/L Potassium (3.8-5.2) meq/L Chloride (98-112) meq/L Carbon Dioxide (23-33) meq/L Anion Gap (5-20) BUN (7-22) mg/dL Creatinine (0.70-1.50) mg/dL BUN/Creatinine Ratio (6-20) Glucose (78-110) mg/dL Mean Blood Glucose mg/dL Hemoglobin A1c (4.2-6.0) % Calculated Osmolality (267-292) mOsm/kg Calcium (8.7-10.7) mg/dL Magnesium (1.6-2.4) mg/dL Total Bilirubin (0.3-1.2) mg/dL AST (21-57) IU/L ALT (21-72) IU/L Alkaline Phosphatase (38-126) IU/L Ammonia (9.0-33.0) UMOL/L CK-MB (CK-2) (0.00-5.00) NG/ML Troponin I Handheld 0.000 (< 0.040) ng/mL C-Reactive Protein (0.0-0.9) mg/dL NT-Pro-B Natriuret Pep (0-450) PG/ML Total Protein (6.1-8.0) g/dL Albumin (3.5-4.8) g/dL Globulin (2.50-4.10) g/dL Albumin/Globulin Ratio (1.3-2.0) mg/g Vitamin B12 286 (239-931) pg/mL Serum Folate > 20.0 H (2.76-20.0) NG/ML TSH (0.2700-4.2000) uIU/mL Free T4 (0.93-1.71) ng/dL Ur Collection Type Clean catch urine Urine Color Yellow (Y) Urine Clarity Clear (CLEAR) Urine pH 5.5 (5.0-8.5) Ur Specific [place] 1.010 (1.005-1.030) U Specif Grav (Refrac) 1.010 Urine Protein Negative (NEG) mg/dl Urine Glucose (UA) Negative (NEG) mg/dL Urine Ketones Negative (NEG) Urine Occult Blood Negative (NEG) Urine Nitrate Negative (NEG) Urine Bilirubin Negative (NEG) Urine Urobilinogen 0.2 (0.2) EU/dL Ur Leukocyte Esterase Negative (NEG) Ur Culture Indicated? Culture not set Urine Opiates Screen Negative (NEG) Ur Buprenorphine Negative (NEG) Ur Oxycodone Screen Negative (NEG) Urine Methadone Screen Negative (NEG) Ur Propoxyphene Screen Negative (NEG) Barbiturate Screen Negative (NEG) U Tricyclic Antidepress Negative (NEG) Phencyclidine Screen Negative (NEG) Amphetamines Screen Negative (NEG) U Methamphetamines Scrn Negative (NEG) Benzodiazepines Screen Negative (NEG) Cocaine Screen Negative (NEG) U Marijuana (THC) Screen Negative (NEG) Serum Alcohol (0-10) mg/dL 11/03/17 11/03/17 11/03/17 Range/Units 04:05 04:05 04:05 WBC (4.8-10.8) 10^3/uL RBC (4.70-6.10) 10^6/uL Hgb (14.0-18.0) g/dL Hgb #2 15.7 (13.00-18.20) G/DL Hct (42.0-52.0) % MCV (80-90) FL MCH (27-31) PG MCHC (33-37) g/dL RDW Std Deviation (39-50) fL RDW Coeff of [place] (11.5-14.5) % Plt Count (140-350) 10*3/uL MPV (7.4-12.2) FL Immature Gran % (Auto) (0-5) % Neut % (Auto) (50-80) % Lymph % (Auto) (10-50) % Foster % (Auto) (5-15) % Eos % (Auto) (0-8) % Baso % (Auto) (0-1) % Immature Gran # (Auto) 10*3/UL Neut # (Auto) 10*3/UL Lymph # (Auto) 10*3/uL Foster # (Auto) (0.3-0.8) 10*3/UL Eos # (Auto) 10*3/UL Baso # (Auto) 10*3/UL WBC Morphology Comment (NORM) Plt Morphology Comment (NORM) RBC Morph Comment (NORM) ESR 2 (0-15) MM/HR PT (9.7-11.4) secs INR (0.00-5.90) N/A D-Dimer (0.00-0.59) mg/L VBG pH (7.32-7.42) VBG pCO2 (45-55) mmHg VBG HCO3 (22-26) mmol/L VBG Base Excess (-2-2) MMOL/L Carbon Monoxide, % Sat 4.9 H (0-2) % Sodium (135-145) meq/L Potassium (3.8-5.2) meq/L Chloride (98-112) meq/L Carbon Dioxide (23-33) meq/L Anion Gap (5-20) BUN (7-22) mg/dL Creatinine (0.70-1.50) mg/dL BUN/Creatinine Ratio (6-20) Glucose (78-110) mg/dL Mean Blood Glucose 110.470 mg/dL Hemoglobin A1c 5.90 (4.2-6.0) % Calculated Osmolality (267-292) mOsm/kg Calcium (8.7-10.7) mg/dL Magnesium (1.6-2.4) mg/dL Total Bilirubin (0.3-1.2) mg/dL AST (21-57) IU/L ALT (21-72) IU/L Alkaline Phosphatase (38-126) IU/L Ammonia (9.0-33.0) UMOL/L CK-MB (CK-2) (0.00-5.00) NG/ML Troponin I Handheld (< 0.040) ng/mL C-Reactive Protein (0.0-0.9) mg/dL NT-Pro-B Natriuret Pep (0-450) PG/ML Total Protein (6.1-8.0) g/dL Albumin (3.5-4.8) g/dL Globulin (2.50-4.10) g/dL Albumin/Globulin Ratio (1.3-2.0) mg/g Vitamin B12 (239-931) pg/mL Serum Folate (2.76-20.0) NG/ML TSH (0.2700-4.2000) uIU/mL Free T4 (0.93-1.71) ng/dL Ur Collection Type Urine Color (Y) Urine Clarity (CLEAR) Urine pH (5.0-8.5) Ur Specific [place] (1.005-1.030) U Specif Grav (Refrac) Urine Protein (NEG) mg/dl Urine Glucose (UA) (NEG) mg/dL Urine Ketones (NEG) Urine Occult Blood (NEG) Urine Nitrate (NEG) Urine Bilirubin (NEG) Urine Urobilinogen (0.2) EU/dL Ur Leukocyte Esterase (NEG) Ur Culture Indicated? Urine Opiates Screen (NEG) Ur Buprenorphine (NEG) Ur Oxycodone Screen (NEG) Urine Methadone Screen (NEG) Ur Propoxyphene Screen (NEG) Barbiturate Screen (NEG) U Tricyclic Antidepress (NEG) Phencyclidine Screen (NEG) Amphetamines Screen (NEG) U Methamphetamines Scrn (NEG) Benzodiazepines Screen (NEG) Cocaine Screen (NEG) U Marijuana (THC) Screen (NEG) Serum Alcohol (0-10) mg/dL 11/03/17 Range/Units 12:35 WBC (4.8-10.8) 10^3/uL RBC (4.70-6.10) 10^6/uL Hgb (14.0-18.0) g/dL Hgb #2 17.9 (13.00-18.20) G/DL Hct (42.0-52.0) % MCV (80-90) FL MCH (27-31) PG MCHC (33-37) g/dL RDW Std Deviation (39-50) fL RDW Coeff of [place] (11.5-14.5) % Plt Count (140-350) 10*3/uL MPV (7.4-12.2) FL Immature Gran % (Auto) (0-5) % Neut % (Auto) (50-80) % Lymph % (Auto) (10-50) % Foster % (Auto) (5-15) % Eos % (Auto) (0-8) % Baso % (Auto) (0-1) % Immature Gran # (Auto) 10*3/UL Neut # (Auto) 10*3/UL Lymph # (Auto) 10*3/uL [place] # (Auto) (0.3-0.8) 10*3/UL Eos # (Auto) 10*3/UL Baso # (Auto) 10*3/UL WBC Morphology Comment (NORM) Plt Morphology Comment (NORM) RBC Morph Comment (NORM) ESR (0-15) MM/HR PT (9.7-11.4) secs INR (0.00-5.90) N/A D-Dimer (0.00-0.59) mg/L VBG pH (7.32-7.42) VBG pCO2 (45-55) mmHg VBG HCO3 (22-26) mmol/L VBG Base Excess (-2-2) MMOL/L Carbon Monoxide, % Sat 5.1 H (0-2) % Sodium (135-145) meq/L Potassium (3.8-5.2) meq/L Chloride (98-112) meq/L Carbon Dioxide (23-33) meq/L Anion Gap (5-20) BUN (7-22) mg/dL Creatinine (0.70-1.50) mg/dL BUN/Creatinine Ratio (6-20) Glucose (78-110) mg/dL Mean Blood Glucose mg/dL Hemoglobin A1c (4.2-6.0) % Calculated Osmolality (267-292) mOsm/kg Calcium (8.7-10.7) mg/dL Magnesium (1.6-2.4) mg/dL Total Bilirubin (0.3-1.2) mg/dL AST (21-57) IU/L ALT (21-72) IU/L Alkaline Phosphatase (38-126) IU/L Ammonia (9.0-33.0) UMOL/L CK-MB (CK-2) (0.00-5.00) NG/ML Troponin I Handheld (< 0.040) ng/mL C-Reactive Protein (0.0-0.9) mg/dL NT-Pro-B Natriuret Pep (0-450) PG/ML Total Protein (6.1-8.0) g/dL Albumin (3.5-4.8) g/dL Globulin (2.50-4.10) g/dL Albumin/Globulin Ratio (1.3-2.0) mg/g Vitamin B12 (239-931) pg/mL Serum Folate (2.76-20.0) NG/ML TSH (0.2700-4.2000) uIU/mL Free T4 (0.93-1.71) ng/dL Ur Collection Type Urine Color (Y) Urine Clarity (CLEAR) Urine pH (5.0-8.5) Ur Specific [place] (1.005-1.030) U Specif Grav (Refrac) Urine Protein (NEG) mg/dl Urine Glucose (UA) (NEG) mg/dL Urine Ketones (NEG) Urine Occult Blood (NEG) Urine Nitrate (NEG) Urine Bilirubin (NEG) Urine Urobilinogen (0.2) EU/dL Ur Leukocyte Esterase (NEG) Ur Culture Indicated? Urine Opiates Screen (NEG) Ur Buprenorphine (NEG) Ur Oxycodone Screen (NEG) Urine Methadone Screen (NEG) Ur Propoxyphene Screen (NEG) Barbiturate Screen (NEG) U Tricyclic Antidepress (NEG) Phencyclidine Screen (NEG) Amphetamines Screen (NEG) U Methamphetamines Scrn (NEG) Benzodiazepines Screen (NEG) Cocaine Screen (NEG) U Marijuana (THC) Screen (NEG) Serum Alcohol (0-10) mg/dL History and Physical pertinent to Admission: Past Medical History Medical History: 1. Obesity. 2. GERD. 3. Hypertension. 4. Asthma. 5. Dementia without behavioral disturbances. 6. BPH. 7. Lower extremity edema. 8. Obstructive sleep apnea. 9. Atrial fibrillation, on Eliquis for stroke prevention Surgical History: 1. ORIF knee, right side. The patient had some sort of accident in the past and extensive surgery on the right lower extremity in the knee. 2. Status post appendectomy. 3.pelvis fracture. 4. wrist fracture Pertinent Family History: No history of Parkinson's disease in the family. Past Social History: Reportedly a history of smoking, but does not currently drink or smoke. Been for over the years. [place], [place]. Has 2 sons present here in the emergency room tonight. Tobacco Use: Former Smoker In the Past 12 Months, Have Used or Abuse Any of the Following Substance: None Alcohol Use: None Course of Hospitalization: This very nice 82-year-old gentleman with the past medical history of the and congestive heart failure secondary to pulmonary hypertension over the last few days patient was very confused with hallucinations history is not obtained from the patient please see the H&P of earlier this morning. Patient was very confused belligerent and aggressive we were able to redirect him and use Haldol. He had received 10 mg of Haldol this morning and now received 10 more + 2 of Ativan and is now on high flow oxygen, considering his carbon monoxide level was 4.9. I did call us at [facility] I spoke with the director of hyperbaric oxygen he states that he does not need hyperbaric unless his levels are 20-25 and if anything he does not think that this level is significantly contributing to his the confusion and should look for other reasons. 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 He also has elevated BNP with congestive heart failure this could also be another cause. Nevertheless I did speak with Dr. Guerrero Radford and Dr. Cruz at [facility] [place], [place] who graciously accepted the patient and were very helpful. patient will be transferred to higher level care for further evaluation and treatment of his confusion and congestive heart failure and cardiothoracic mass with neurology CT surgeon interventional radiologist and neurology I did discuss this at length with the family which a full heartily agrees On the date of discharge, the patient was examined: Gen.: [Sedated now on oxygen] Heart: [Regular rate and rhythm, no murmurs, clicks, gallops, or rubs] Lungs: [Clear to auscultation bilaterally, breathing is nonlabored] Abdomen/GI: [Normal tones on auscultation, soft, nontender, nondistended] Musculoskeletal/extremities: [No clubbing, cyanosis, +1 edema Vitals reviewed and are listed below Vital Signs (24 hrs) Temp Pulse Pulse Pulse Resp BP Pulse Ox 11/03/17 07:35 56 L 18 11/03/17 07:00 68 11/03/17 06:39 81 18 91 11/03/17 06:23 97.7 F 71 19 159/105 94 11/03/17 04:57 97.2 F 76 169/115 95 11/03/17 03:36 168/103 11/03/17 03:32 63 16 99 11/03/17 03:31 66 19 97 11/03/17 03:23 94 11/03/17 03:00 74 11/03/17 02:38 161/122 11/03/17 02:37 96.9 F 91 24 170/133 97 11/03/17 01:50 97.1 F 50 L 84 18 157/119 90 Assessment and Plan: 1. As per discharge assessments above 2. Disposition: [facility] neurology floor except a by Dr. Guerrero Radford 3. Condition on discharge, stable and improved. 4. Diet: regular diet 5. Activities: resume normal activities 6. Follow-Up: 1. [PCP] 2. 7. Medications at the Time of Discharge: Home Medications 3 Medication Instructions Recorded Confirmed Type Polyethylene Glycol 3350 [Miralax] 17 gm PO DAILY 09/23/16 10/14/17 History lisinopril 40 mg tablet 40 mg PO QD #90 tab 10/24/16 10/14/17 Rx apixaban 2.5 mg tablet 2.5 mg PO BID #60 tab 09/23/17 10/14/17 Rx metoprolol succinate ER 25 mg 25 mg PO QDAY #30 tab 09/23/17 10/14/17 Rx tablet,extended release 24 hr furosemide 40 mg tablet 80 mg PO QAM #180 tab 09/26/17 10/14/17 Rx spironolactone 25 mg tablet 25 mg PO QAM #30 tab 10/14/17 10/14/17 Rx tamsulosin 0.4 mg capsule 0.8 mg PO QDAY cap 10/14/17 10/14/17 History albuterol sulfate HFA 90 2 puff INH Q4H PRN #8 g 10/22/17 Rx mcg/actuation aerosol inhaler 8. Time, care, counseling and coordination of care for this discharge is greater than 30 minutes. Exam - Vitals Vital Signs: Vital Signs Temperature 97.7 F Temperature Source Temporal Artery Scan Pulse Rate [Pulse Oximeter] 71 Pulse Rate [Apical] 56 Pulse Rate 68 Respiratory Rate 18 Blood Pressure [Right Arm] 159/105 Pulse Ox 91 Oxygen Flow Rate 2 Oxygen Delivery Method Nasal Cannula Height 5 ft 8 in Weight 255 lb 11.2 oz
[2017-11-03] MEDS ORDERED: LORazepam 2 MG/1 ML VIAL IVP PRN (13:02)
== END 2017-11-03 15:27 | disposition short-term general hospital (02) | DRG 948 ==
LOC: MED/SURG 22:10 → ER 22:10 → MED/SURG 11-03 01:45
PROVIDERS: ADMIT Family Medicine; ATTEND Family Medicine